=== PATIENT | male | born 1980 | race Caucasian/White ===

== ENCOUNTER 2021-04-12 11:27 | Emergency (ER) | payer OTHER | END 2021-04-12 13:20 | disposition home or self-care (01) | LOC: FER 11:27 | DX: L29.9 Pruritus, unspecified (principal); R06.00 Dyspnea, unspecified; R22.1 Localized swelling, mass and lump, neck; T39.395A Adverse effect of other nonsteroidal anti-inflammatory drugs [NSAID], initial encounter; I10 Essential (primary) hypertension; Z79.899 Other long term (current) drug therapy; Z88.8 Allergy status to other drugs, medicaments and biological substances; Y92.9 Unspecified place or not applicable | CPT/HCPCS: 99284 ==